=== PATIENT | female | born 1955 | race Caucasian/White ===

== ENCOUNTER 2016-09-10 16:20 | Emergency (ER) | payer OTHER ==
[~2016-09-10] VITALS: Ht 160 cm; Wt 86.0 kg
[2016-09-10 17:10] LABS: EOSINOPHIL (%) 0 % (0-5); IMMATURE GRANULOCYTE (%) 0.7 % (0.0-0.7); IMMATURE GRANULOCYTE COUNT 0.1 K/uL; INSTRUMENT ABS NEUTROPHIL CT 8.7 K/uL; LYMPHOCYTE COUNT 1.7 K/uL (1.0-2.8); MCH 30.5 PG (29.0-34.0); MCHC 35.6 G/DL (30.0-36.0); MCV 85.6 FL (83-99); MEAN PLAT.VOLUME 9.9 uM^3 (9.5-12.4); MONOCYTE (%) 5.6 % (3-12); MONOCYTE COUNT 0.6 K/uL (0-0.8); NEUTROPHIL COUNT 8.7 K/uL (1.8-6.4); PLATELET COUNT 270 K/uL (156-360); RBC DIS.WIDTH-CV 12.8 % (11.8-14.6); RBC DIS.WIDTH-SD 39.8 % (39-53); RED BLOOD COUNT 3.74 M/uL (3.80-5.20); WHITE BLOOD COUNT 11.2 K/uL (4.1-10.2)
[2016-09-10 17:21] LABS: CHLORIDE 90 mEq/L (99-109); POTASSIUM 4.7 mEq/L (3.7-5.4); SODIUM 126 mEq/L (136-147)
[2016-09-10 17:23] LABS: GLUCOSE 132 mg/dL (70-99)
[2016-09-10 17:25] LABS: ANION GAP 12 MEQ/L (2-14); TOTAL BILIRUBIN 0.9 mg/dL (0.0-1.0)
[2016-09-10 17:27] LABS: ALKALINE PHOSPHATASE 56 IU/L (3-129); GFR ESTIMATE (CALCULATED) 35 mL/min/
[2016-09-10 17:28] LABS: UREA NITROGEN (BUN) 34 mg/dL (9-23)
[2016-09-10 17:30] LABS: LIPASE 14 U/L (1.0-51.0)
[2016-09-10 19:38] LABS: ADD MIUA? YES; BILIRUBIN NEGATIVE; BLOOD NEGATIVE; COLOR YELLOW ((YELLOW)); GLUCOSE (STRIP) NEGATIVE; KETONES NEGATIVE; LEUKOCYTES SMALL; NITRITE NEGATIVE; PROTEIN (STRIP) 30; SPECIFIC GRAVITY 1.013 (1.000-1.030); UROBILINOGEN 0.2 MG/DL (0.2-1.0)
[2016-09-10 19:56] LABS: BACTERIA RARE /HPF; EPITHELIAL CELLS RARE /HPF; HYALINE CASTS 0-5 /LPF; MUCUS TRACE /LPF; RED BLOOD CELLS 0-5 /HPF (0-5)
[2016-09-10] MEDS ORDERED: BENTYL20 MG PO (20:05)
[2016-09-10] MEDS ORDERED: NORCO 5/3251 TABLET PO (20:05)
[2016-09-10] MEDS ORDERED: ZOFRAN ODT8 MG PO (20:05)
[2016-09-10 20:39] VITALS: BP 149/94
== END 2016-09-10 20:42 | disposition home or self-care (01) ==
LOC: EME 16:20
PROVIDERS: Physician Assistant
DX: R79.89 Other specified abnormal findings of blood chemistry (principal); R10.9 Unspecified abdominal pain; I10 Essential (primary) hypertension; E11.9 Type 2 diabetes mellitus without complications; E78.5 Hyperlipidemia, unspecified
CPT/HCPCS: 74176; 80053; 81003; 83690; 85025; 99281; 99284; J2270; J7030

== ENCOUNTER 2017-01-05 12:53 | Emergency (ER) | payer OTHER ==
[~2017-01-05] VITALS: Ht 160 cm; Wt 83.8 kg
[~2017-01-05 12:53] MED LIST: BENTYL20 MG PO; NORCO 5/3251 TABLET PO; ZOFRAN ODT8 MG PO
[2017-01-05 13:17] LABS: EOSINOPHIL (%) 2.5 % (0-5); EOSINOPHIL COUNT 0.2 K/uL (0-0.3); IMMATURE GRANULOCYTE (%) 0.5 % (0.0-0.7); LYMPHOCYTE COUNT 1.7 K/uL (1.0-2.8); MCH 30.1 PG (29.0-34.0); MCHC 33.8 G/DL (30.0-36.0); MCV 89.1 FL (83-99); MEAN PLAT.VOLUME 10.5 uM^3 (9.5-12.4); MONOCYTE (%) 7.4 % (3-12); MONOCYTE COUNT 0.6 K/uL (0-0.8); NEUTROPHIL (%) 66.9 % (45-76); PLATELET COUNT 276 K/uL (156-360); RBC DIS.WIDTH-CV 12.4 % (11.8-14.6); RBC DIS.WIDTH-SD 40.6 % (39-53); RED BLOOD COUNT 3.59 M/uL (3.80-5.20); WHITE BLOOD COUNT 7.5 K/uL (4.1-10.2)
[2017-01-05 13:30] LABS: CHLORIDE 98 mEq/L (99-109); POTASSIUM 3.8 mEq/L (3.7-5.4); SODIUM 136 mEq/L (136-147)
[2017-01-05 13:31] LABS: MAGNESIUM 1.1 mg/dL (1.3-2.7)
[2017-01-05 13:33] LABS: GLUCOSE 121 mg/dL (70-99)
[2017-01-05 13:34] LABS: ANION GAP 9 MEQ/L (2-14)
[2017-01-05 13:35] LABS: TOTAL BILIRUBIN 0.5 mg/dL (0.0-1.0)
[2017-01-05 13:36] LABS: ALKALINE PHOSPHATASE 60 IU/L (3-129); GFR ESTIMATE (CALCULATED) > 59 mL/min/
[2017-01-05 13:37] LABS: TROP-I INTERPRETATION NEGATIVE; TROPONIN-I < 0.01 ng/mL (0.0-0.30); UREA NITROGEN (BUN) 18 mg/dL (9-23)
[2017-01-05 13:39] LABS: CREATINE KINASE 91 IU/L (1-294); TOTAL CK 91 IU/L (1-294)
[2017-01-05 13:45] LABS: CK-MB 1.7 ng/mL (0.0-4.9)
[2017-01-05 14:44] LABS: ADD MIUA? YES; BILIRUBIN NEGATIVE; BLOOD SMALL; COLOR STRAW ((YELLOW)); GLUCOSE (STRIP) NEGATIVE; KETONES NEGATIVE; LEUKOCYTES NEGATIVE; NITRITE NEGATIVE; PROTEIN (STRIP) NEGATIVE; UROBILINOGEN 0.2 MG/DL (0.2-1.0)
[2017-01-05 14:50] LABS: BACTERIA NONE SEEN /HPF; EPITHELIAL CELLS RARE /HPF; MUCUS NONE SEEN /LPF; RED BLOOD CELLS 0-5 /HPF (0-5); UCUL ADDED? NO; WHITE BLOOD CELLS 0-5 /HPF (0-5)
[2017-01-05 17:02] LABS: TROP-I INTERPRETATION NEGATIVE; TROPONIN-I 0.01 ng/mL (0.0-0.30)
[2017-01-05] MEDS ORDERED: MECLIZINE HCL25 MG PO (17:53)
[2017-01-05 18:23] VITALS: BP 138/84
== END 2017-01-05 18:29 | disposition home or self-care (01) ==
LOC: EME 12:53
PROVIDERS: Emergency Medicine
DX: H81.11 Benign paroxysmal vertigo, right ear (principal); R07.9 Chest pain, unspecified; E11.9 Type 2 diabetes mellitus without complications
CPT/HCPCS: 71010; 80053; 81003; 82550; 82553; 83735; 84484; 85025; 93005; 99281; 99285; J7030

== ENCOUNTER → 2017-02-24 | Outpatient (CLI) | payer OTHER ==
[~2017-02-24] VITALS: Ht 160 cm; Wt 85.7 kg
[~2017-02-24] MED LIST changes: +BENICAR HCT 401 EAC1 PO; +GLUCOPHAGE1000 MG PO; +GLUCOPHAGE500 MG PO; +IRON325 M1 PO; +JANUVIA100 MG PO; +LANTUS 10100 UNITS/ SC; +LOTENSIN40 MG PO; +MECLIZINE HCL25 MG PO; +NOVOLOG PE100 UNITS/ SC; +PAXIL20 MG PO; +PRAVACHOL20 MG PO; +TIMOPTIC-0100 DROP/1 BOTH EYES
[2017-02-24 13:10] LABS: POINT-OF-CARE METER ID UU14107333
== END | disposition home or self-care (01) ==
LOC: AMB 12:26
PROVIDERS: Internal Medicine Cardiovascular Disease
PROC: B24BZZ4 Ultrasonography of Heart with Aorta, Transesophageal (ICD-10-PCS; principal; 2017-02-24)
DX: I08.1 Rheumatic disorders of both mitral and tricuspid valves (principal); E11.9 Type 2 diabetes mellitus without complications; E78.5 Hyperlipidemia, unspecified; I10 Essential (primary) hypertension; R94.31 Abnormal electrocardiogram [ECG] [EKG]
CPT/HCPCS: 82948; 93312; J2250; J3010

== ENCOUNTER 2017-03-16 06:17 | Day surgery (SDC) | payer OTHER ==
[~2017-03-16] VITALS: Ht 160 cm; Wt 84.0 kg
[~2017-03-16 06:17] MED LIST changes: +ASPIRIN81 M2 PO
== END 2017-03-16 13:50 | disposition home or self-care (01) ==
LOC: CATH 06:17
PROVIDERS: Internal Medicine Cardiovascular Disease
PROC: B2111ZZ Fluoroscopy of Multiple Coronary Arteries using Low Osmolar Contrast (ICD-10-PCS; principal; 2017-03-16)
PROC: 4A023N7 Measurement of Cardiac Sampling and Pressure, Left Heart, Percutaneous Approach (ICD-10-PCS; principal; 2017-03-16)
DX: I25.10 Atherosclerotic heart disease of native coronary artery without angina pectoris (principal); I10 Essential (primary) hypertension; E11.9 Type 2 diabetes mellitus without complications; Z79.4 Long term (current) use of insulin; E78.5 Hyperlipidemia, unspecified; Z88.0 Allergy status to penicillin
CPT/HCPCS: 82948; 93005; C1769; C1887; J1644; J2250; J3010